=== PATIENT | male | born 1935 | race American Indian/Alaskan Native ===

== ENCOUNTER 2019-05-25 10:15 | Outpatient (CLI) | payer MEDICARE ==
[2019-05-25 10:45] LABS: Hematocrit 47.6 % (35.5-45.6); Hemoglobin 16.3 gm/dl (11.8-15.2); Mean Corpuscular HGB Conc 34 % (32-34); Mean Corpuscular Volume 88 fl (84-94); Platelet Count 199 K/mm3 (140-440); Red Blood Count 5.44 M/mm3 (3.65-5.03); Red Cell Distribution Width 14.2 % (13.2-15.2)
[2019-05-25 10:57] LABS: INR 1.17 (0.87-1.13)
[2019-05-25 10:58] LABS: Partial Thromboplastin Time 31.3 Sec. (24.2-36.6)
[2019-05-25 11:32] LABS: Alanine Aminotransferase 14 units/L (7-56); Albumin 4.6 g/dL (3.9-5); BUN/Creatinine Ratio 15; Blood Urea Nitrogen 18 mg/dL (9-20); Calcium 9.6 mg/dL (8.4-10.2); Chol/HDL Ratio 3.46 %; HDL Cholesterol 45 mg/dL (40-59); Hemolysis Index 6; LDL Cholesterol,Direct 92 mg/dL (50-130)
[2019-05-28 14:34] LABS: Protein S, Free 80 % normal (57-171); Protein S, Total 99 % normal (70-140)
== END 2019-05-25 10:16 | disposition home or self-care (01) ==
LOC: LAB 10:15
PROVIDERS: ATTEND Internal Medicine
DX: I10 Essential (primary) hypertension (principal); K21.9 Gastro-esophageal reflux disease without esophagitis; J44.9 Chronic obstructive pulmonary disease, unspecified; F03.90 Unspecified dementia, unspecified severity, without behavioral disturbance, psychotic disturbance, mood disturbance, and anxiety; G40.909 Epilepsy, unspecified, not intractable, without status epilepticus; Z86.73 Personal history of transient ischemic attack (TIA), and cerebral infarction without residual deficits; Z90.49 Acquired absence of other specified parts of digestive tract; Z86.711 Personal history of pulmonary embolism; Z79.899 Other long term (current) drug therapy; Z86.718 Personal history of other venous thrombosis and embolism; Z79.01 Long term (current) use of anticoagulants
CPT/HCPCS: 36415; 80053; 80061; 84436; 84443; 85027; 85305; 85610; 85730

== ENCOUNTER 2019-07-26 11:33 | Outpatient (CLI) | payer MEDICARE ==
[2019-07-26 12:00] LABS: Hematocrit 50.3 % (35.5-45.6); Hemoglobin 16.7 gm/dl (11.8-15.2); Mean Corpuscular HGB Conc 33 % (32-34); Mean Corpuscular Volume 89 fl (84-94); Platelet Count 252 K/mm3 (140-440); Red Blood Count 5.63 M/mm3 (3.65-5.03); Red Cell Distribution Width 14.2 % (13.2-15.2)
[2019-07-26 12:28] LABS: Alanine Aminotransferase 10 units/L (7-56); Albumin 4.7 g/dL (3.9-5); BUN/Creatinine Ratio 10; Blood Urea Nitrogen 12 mg/dL (9-20); Calcium 9.1 mg/dL (8.4-10.2); Hemolysis Index 13
--- NOTE | 2019-07-26 12:57 | XRay Report ---
CHEST 2 VIEWS INDICATION: COPD. COMPARISON: None. FINDINGS: Support devices: None. Heart: Within normal limits. Pulmonary vasculature: Normal. Lungs/pleura: No acute air space or interstitial disease. The lungs are mildly hyperexpanded and hype rlucent. No pleural effusion. No pneumothorax. Additional findings: Spondylosis of the thoracic spine diffuse osteopenia.. IMPRESSION: 1. No acute findings. 2. COPD. Signer Name: Aneesh Tomas MD Signed: 07/26/2019 12:53 PM Workstation Name: [id number]
== END 2019-07-26 11:34 | disposition home or self-care (01) ==
LOC: XRAY 11:33
PROVIDERS: ATTEND Internal Medicine
DX: J44.9 Chronic obstructive pulmonary disease, unspecified (principal); I26.99 Other pulmonary embolism without acute cor pulmonale; I10 Essential (primary) hypertension; E78.5 Hyperlipidemia, unspecified; Z87.891 Personal history of nicotine dependence; Z90.49 Acquired absence of other specified parts of digestive tract
CPT/HCPCS: 36415; 36600; 71046; 80053; 82803; 85027

== ENCOUNTER 2020-02-20 15:38 | Emergency (ER) | payer MEDICARE ==
[2020-02-20] MEDS ORDERED: LORazepam 2 MG/ML VIAL IM PRN (16:27)
--- NOTE | 2020-02-20 16:28 | Emergency Department Report ---
ED General Adult HPI - General Chief complaint: Medical Clearance Stated complaint: COMBATIVE PUI?: No Time Seen by Provider: 02/20/20 16:20 Source: patient, EMS ( EMS documentation not available at time of chart dictatio n ), RN notes reviewed, old records reviewed Mode of arrival: Stretcher Limitations: Physical Limitation, Other (Patient is demented and a poor histor adria) - History of Present Illness Initial comments: Primary care doctor: Dr. Bee, Dr. Maxwell, Dr. Miller Past medical history: Dementia, hypertension, high cholesterol, pulmonary embolism Patient is an 84-year-old gentleman. He is sent to the emergency room for evaluation of reported aggressive behavior. The patient is not currently accompanied by friends or family at this time for additional information or collateral information. In the emergency room, the patient denies physical pain. He denies other complaints. The patient states that he would like to eat, and asks for a blanket because "that fan out there is blowing cold air on me." -: This afternoon Severity scale (0 -10): 0 Improves with: none Worsens with: none Associated Symptoms: denies other symptoms - Related Data Previous Rx's Medication Instructions Recorded Last Taken Type Losartan [Cozaar] 25 mg PO QDAY #30 tablet 01/21/16 Unknown Rx Potassium Chloride [K-Dur] 20 meq PO QDAY #30 tablet 01/21/16 Unknown Rx Rivaroxaban [Xarelto] 15 mg PO BIDDIAB #14 day 01/21/16 Unknown Rx Simvastatin [Zocor TAB] 20 mg PO HS #30 tablet 01/21/16 Unknown Rx Trifluridine 1% (Nf) [Viroptic 1 drops OP Q2HR #1 bottle 01/21/16 Unknown Rx (Nf)] amLODIPine 5 mg PO DAILY #30 tablet 01/21/16 Unknown Rx donepeziL [Aricept] 10 mg PO HS #30 tablet 01/21/16 Unknown Rx levETIRAcetam [Keppra TAB] 1,000 mg PO BID #60 tablet 01/21/16 Unknown Rx Nitrofurantoin Rice/M-Cryst 100 mg PO Q12HR #13 capsule 02/20/20 Unknown Rx [Macrobid CAP] Allergies Allergy/AdvReac Type Severity Reaction Status Date / Time No Known Allergies Allergy Verified 05/03/14 01:02 ED Review of Systems ROS: Stated complaint: COMBATIVE Other details as noted in HPI Comment: Patient is demented and a poor historian Constitutional: denies: fever Respiratory: denies: cough Cardiovascular: denies: chest pain Gastrointestinal: denies: abdominal pain Genitourinary: as per HPI Musculoskeletal: denies: back pain Psychiatric: denies: homicidal thoughts, suicidal thoughts ED Past Medical Hx - Past Medical History Hx Hypertension: Yes 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 hernia repair - Social History Smoking Status: Never Smoker Substance Use Type: None - Medications Home Medications: Home Medications Medication Instructions Recorded Confirmed Last Taken Type Losartan [Cozaar] 25 mg PO QDAY #30 tablet 01/21/16 Unknown Rx Potassium Chloride [K-Dur] 20 meq PO QDAY #30 tablet 01/21/16 Unknown Rx Rivaroxaban [Xarelto] 15 mg PO BIDDIAB #14 day 01/21/16 Unknown Rx Simvastatin [Zocor TAB] 20 mg PO HS #30 tablet 01/21/16 Unknown Rx Trifluridine 1% (Nf) [Viroptic 1 drops OP Q2HR #1 bottle 01/21/16 Unknown Rx (Nf)] amLODIPine 5 mg PO DAILY #30 tablet 01/21/16 Unknown Rx donepeziL [Aricept] 10 mg PO HS #30 tablet 01/21/16 Unknown Rx levETIRAcetam [Keppra TAB] 1,000 mg PO BID #60 tablet 01/21/16 Unknown Rx Nitrofurantoin Rice/M-Cryst 100 mg PO Q12HR #13 capsule 02/20/20 Unknown Rx [Macrobid CAP] ED Physical Exam - General Limitations: Physical Limitation, Other (Demented and a poor historian) General appearance: alert, in no apparent distress - Head Head exam: Present: atraumatic, normocephalic - Eye Eye exam: Present: normal appearance - ENT ENT exam: Present: normal exam, mucous membranes moist, normal external ear exam - Neck Neck exam: Present: normal inspection, full ROM. Absent: tenderness, meningismus - Respiratory Respiratory exam: Present: normal lung sounds bilaterally. Absent: respiratory distress - Cardiovascular Cardiovascular Exam: Present: normal rhythm, bradycardia, normal heart sounds. Absent: tachycardia, irregular rhythm, systolic murmur, diastolic murmur, rubs, gallop - GI/Abdominal GI/Abdominal exam: Present: soft. Absent: distended, tenderness, guarding, rebound, rigid, pulsatile mass - Rectal Rectal exam: Present: deferred - Extremities Exam Extremities exam: Present: normal inspection, full ROM, other (2+ pulses noted i n the bilateral upper and lower extremities. There is no palpable cord. negative Homans sign. Muscular compartments are soft. The pelvis is stable.). Absent: pedal edema, calf tenderness - Back Exam Back exam: Present: normal inspection, full ROM. Absent: tenderness, CVA tenderness (R), CVA tenderness (L), paraspinal tenderness, vertebral tenderness - Neurological Exam Neurological exam: Present: alert (Patient is alert to name. The patient follows commands. The patient is demented.), other (No facial droop. Tongue midline. Extraocular movements intact bilaterally. Facial sensation intact to light touch in V1, V2, V3 distribution bilaterally. 5 and a 5 strength in 4 extremities. Sensation intact to light touch in 4 extremities.) - Psychiatric Psychiatric exam: Present: agitated - Skin Skin exam: Present: warm, dry, intact, normal color. Absent: rash ED Course Vital Signs 02/20/20 02/20/20 02/20/20 15:51 16:00 16:05 Temperature 97.6 F Pulse Rate 93 H 66 62 Respiratory 18 Rate Blood Pressure 113/59 113/59 O2 Sat by Pulse 100 99 Oximetry 02/20/20 02/20/20 02/20/20 16:16 16:30 16:45 Temperature Pulse Rate 63 66 Respiratory 15 Rate Blood Pressure 101/57 101/57 116/80 O2 Sat by Pulse 100 98 100 Oximetry 02/20/20 02/20/20 02/20/20 17:00 17:15 17:30 Temperature Pulse Rate 59 L 60 67 Respiratory 24 18 Rate Blood Pressure 116/80 121/68 113/71 O2 Sat by Pulse 100 100 Oximetry 02/20/20 02/20/20 02/20/20 17:45 18:00 18:16 Temperature Pulse Rate 68 66 72 Respiratory 18 12 11 L Rate Blood Pressure 118/67 117/46 130/89 O2 Sat by Pulse 100 100 89 Oximetry 02/20/20 02/20/20 18:30 18:45 Temperature Pulse Rate 61 65 Respiratory 11 L 16 Rate Blood Pressure 135/63 147/80 O2 Sat by Pulse 98 97 Oximetry - Reevaluation(s) Reevaluation #1: 02/20/20 17:10 Differential diagnosis, including but not limited to: Dementia, bacteriuria, thyroid derangement, electrolyte derangement, intracranial lesion, behavioral disturbance Assessment and plan: 84-year-old gentleman with a history of dementia, with a nonfocal motor exam, who denies medical complaints, with a benign and unremarkable physical examination, reassuring vital signs, sent to the emergency room with a nursing endorsed complaints of aggressive behavior. The patient is not violent or combative in the emergency room. Most likely, the history of aggressive behavior is likely secondary to patient's underlying dementia. Ho wever, we will work the patient up for additional pathology, and obtain CT scan of the brain, urinalysis, EKG, and appropriate screening laboratory studies. At the moment, he does not meet 1013 criteria in my opinion. Reevaluation #2: 02/20/20 19:23 Patient is observed for hours without clinical decompensation. His laboratory studies are unremarkable. Urinalysis suggest possible urinary tract infection. Macrobid is ordered. He does not appear to have an emergent medical condition at this time. He is medically suitable for discharge at this point time. It is unclear how mental health/psychiatry was consulted regarding this patient, as I personally did not request this consultation. Nevertheless, the psychiatry team has evaluated the patient, and he has been accepted to the fifth floor geriatric psychiatric unit. I will discharge the patient from the emergency room, and if the patient or family elects to have the patient to go to the fifth floor geriat [facility] psych unit that is their prerogative. In any event, there does not appear to be an emergent medical condition that would preclude discharge to his detention, or to the aforementioned geriatric psychiatric unit. ED Medical Decision Making - Lab Data Result diagrams: 02/20/20 16:33 02/20/20 16:33 Vital Signs 02/20/20 16:05 Temperature 97.6 F Pulse Rate 62 Respiratory 18 Rate Blood Pressure 113/59 O2 Sat by Pulse 99 Oximetry Vital Signs 02/20/20 16:05 Temperature 97.6 F Pulse Rate 62 Respiratory 18 Rate Blood Pressure 113/59 O2 Sat by Pulse 99 Oximetry Lab Results 02/20/20 02/20/20 02/20/20 Range/Units 16:33 16:33 16:33 WBC 5.6 (4.5-11.0) K/mm3 RBC 4.86 (3.65-5.03) M/mm3 Hgb 14.3 (11.8-15.2) gm/dl Hct 42.7 (35.5-45.6) % MCV 88 (84-94) fl MCH 29 (28-32) pg MCHC 34 (32-34) % RDW 14.9 (13.2-15.2) % Plt Count 223 (140-440) K/mm3 PT 14.6 (12.2-14.9) Sec. INR 1.16 H (0.87-1.13) Sodium 140 (137-145) mmol/L Potassium 4.2 (3.6-5.0) mmol/L Chloride 103.5 (98-107) mmol/L Carbon Dioxide 25 (22-30) mmol/L Anion Gap 16 mmol/L BUN 18 (9-20) mg/dL Creatinine 1.0 (0.8-1.5) mg/dL Estimated GFR > 60 ml/min BUN/Creatinine Ratio 18 % Glucose 127 H (75-100) mg/dL Calcium 8.8 (8.4-10.2) mg/dL Magnesium 2.30 (1.7-2.3) mg/dL TSH (0.270-4.200) mlU/mL Salicylates (2.8-20.0) mg/dL Acetaminophen (10.0-30.0) ug/mL 02/20/20 02/20/20 02/20/20 Range/Units 16:33 16:33 16:33 WBC (4.5-11.0) K/mm3 RBC (3.65-5.03) M/mm3 Hgb (11.8-15.2) gm/dl Hct (35.5-45.6) % MCV (84-94) fl MCH (28-32) pg MCHC (32-34) % RDW (13.2-15.2) % Plt Count (140-440) K/mm3 PT (12.2-14.9) Sec. INR (0.87-1.13) Sodium (137-145) mmol/L Potassium (3.6-5.0) mmol/L Chloride (98-107) mmol/L Carbon Dioxide (22-30) mmol/L Anion Gap mmol/L BUN (9-20) mg/dL Creatinine (0.8-1.5) mg/dL Estimated GFR ml/min BUN/Creatinine Ratio % Glucose (75-100) mg/dL Calcium (8.4-10.2) mg/dL Magnesium (1.7-2.3) mg/dL TSH 1.170 (0.270-4.200) mlU/mL Salicylates < 0.3 L (2.8-20.0) mg/dL Acetaminophen < 5.0 L (10.0-30.0) ug/mL - EKG Data -: EKG Interpreted by Me - EKG Data 02/20/20 17:12 Sinus rhythm, bradycardia, 58 bpm, there is a normal axis, there is a borderline first-degree AV block, defect, and low voltage EKG is not a STEMI. EKG appears to be grossly unchanged from prior EKG from December 2015 - Radiology Data Radiology results: report reviewed, image reviewed interpreted by me: Noncontrast CT scan of the brain reviewed by myself, shows chronic findings, no acute disease Print Report Referring Physician: JORGE SETHI Patient Name: ANJANA BRINK Date of : 1935 Sex: Male Report Date: 2020-02-20 Report Status: Finalized Findings [facility] [address] [place] [address] Cat Scan Report Signed Patient: ANJANA BRINK MR#: [id number] : 1935 Acct:[id number] Age/Sex: 84 / M ADM Date: 02/20/20 Loc: ED Attending Dr: Ordering Physician: JORGE SETHI MD Date of Service: 02/20/20 Procedure(s): CT head/brain wo con Accession Number(s): [id number] cc: JORGE SETHI MD CT HEAD WITHOUT CONTRAST INDICATION / CLINICAL INFORMATION: Change in behavior. TECHNIQUE: All CT scans at this location are performed using CT dose reduction for ALARA by means of automated exposure control. COMPARISON: Head CT 01/14/2016 FINDINGS: HEMORRHAGE: No evidence of intracranial hemorrhage or extra-axial fluid collection. EXTRA-AXIAL SPACES: Cortical sulci and sylvian fissures are enlarged reflecting a degree of parenchymal volume loss which is pronounced even given the patient's stated age of 84 years. . Dilatation of the subarachnoid space over the convexity of both cerebral hemispheres is a manifestation of atrophy in this patient. Basilar cisterns have an unremarkable appearance. VENTRICULAR SYSTEM: The third and lateral ventricles are enlarged reflecting presence of prominent parenchymal volume loss. CEREBRAL PARENCHYMA: Periventricular and deep white matter lucency is observed. This is probably secondary to advanced microvascular ischemic change. There is no indication of recent infarction. Areas of encephalomalacia are observed in a distribution compatible with bilateral posterior cerebral artery infarctions involving both occipital lobes. Similar findings were present on previous study. There is evidence of a remote small deep infarction in the anterior limb of the internal capsule on the left. This has occurred since prior study. MIDLINE SHIFT OR HERNIATION: There is no mass effect. CEREBELLUM / BRAINSTEM: Age-related cerebellar atrophy is noted. Brainstem and cerebellum have an otherwise unremark able appearance. INTRACRANIAL VESSELS:Calcified atherosclerotic plaque is present along the course of the cavernous segments of both internal carotid arteries. ORBITS: Patient is status post bilateral cataract surgery. Orbits have an otherwise unremarkable appearance. SOFT TISSUES of HEAD: No significant abnormality. CALVARIUM: Evaluation of bone windows reveals no abnormalities. PARANASAL SINUSES / MASTOID AIR CELLS: Paranasal sinuses are free from inflammatory mucosal disease. Mastoid air cells are normally pneumatized. IMPRESSION: 1. 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 2. Small deep infarction anterior limb internal capsule on the left. This has occurred since previous study. This likely late subacute or chronic in duration. 3. Prominent atrophy and microvascular ischemic change even allowing for the patient's age of 84 years. 4. No acute intracranial abnormalities are identified. Signer Name: Derick Mak MD Signed: 02/20/2020 5:32 PM Workstation Name: [id number] Transcribed By: Dictated By: Derick Mak MD Electronically Authenticated By: Derick Mak MD Signed Date/Time: 02/20/20 173 DD/ 25 TD/TT: Critical care attestation.: If time is entered above; I have spent that time in minutes in the direct care of this critically ill patient, excluding procedure time. ED Disposition Clinical Impression: Dementia, History of behavior problem, Bacteriuria Disposition: [id number]/TX-70 ANOTHER TYPE HLTHCARE Is pt being admited?: No Does the pt Need Aspirin: No Condition: Stable Additional Instructions: Cultures were sent today, and results will be available in the next 3 to 5 days. Please have a primary care doctor contact the medical records department to obtain culture results. Take the antibiotics as directed. Follow-up with a general medical doctor within the next 5 to 7 days. At this point in time, patient does not appear to have an immediate medical contraindication to discharge from the emergency room; an emergent medical condition was not identified during his stay in the emergency room. The patient does not meet criteria for hospitalization from a medical perspective at this time. Please return to the emergency room right away with new pain, worsening pain, migration of pain, projectile vomiting, change in mental status, confusion, inability to tolerate liquid feeds, new, worsened or different symptoms not present on the initial emergency room evaluation. Referrals: MITESH SORENSEN MD [Staff Physician] - 3-5 Days
[2020-02-20 17:10] LABS: Hematocrit 42.7 % (35.5-45.6); Hemoglobin 14.3 gm/dl (11.8-15.2); Mean Corpuscular HGB Conc 34 % (32-34); Mean Corpuscular Volume 88 fl (84-94); Platelet Count 223 K/mm3 (140-440); Red Blood Count 4.86 M/mm3 (3.65-5.03); Red Cell Distribution Width 14.9 % (13.2-15.2)
[2020-02-20 17:24] LABS: INR 1.16 (0.87-1.13)
[2020-02-20 17:31] LABS: BUN/Creatinine Ratio 18; Blood Urea Nitrogen 18 mg/dL (9-20); Calcium 8.8 mg/dL (8.4-10.2); Hemolysis Index 42
--- NOTE | 2020-02-20 17:36 | Cat Scan Report ---
CT HEAD WITHOUT CONTRAST INDICATION / CLINICAL INFORMATION: Change in behavior. TECHNIQUE: All CT scans at this location are performed using CT dose reduction for ALARA by means of automated e xposure control. COMPARISON: Head CT 01/14/2016 FINDINGS: HEMORRHAGE: No evidence of intracranial hemorrhage or extra-axial fluid collection. EXTRA-AXIAL SPACES: Cortical sulci and sylvian fissures are enlarged reflecting a degree of parenchym al volume loss which is pronounced even given the patient's stated age of 84 years. . Dilatation of the subarachnoid space over the convexity of both cerebral hemispheres is a manifestation of atrophy in this patient. Basilar cisterns have an unremarkable appearance. VENTRICULAR SYSTEM: The third and lateral ventricles are enlarged reflecting presence of prominent pa renchymal volume loss. CEREBRAL PARENCHYMA: Periventricular and deep white matter lucency is observed. This is probably seco ndary to advanced microvascular ischemic change. There is no indication of recent infarction. Areas o f encephalomalacia are observed in a distribution compatible with bilateral posterior cerebral artery infarctions involving both occipital lobes. Similar findings were present on previous study. There i s evidence of a remote small deep infarction in the anterior limb of the internal capsule on the left . This has occurred since prior study. MIDLINE SHIFT OR HERNIATION: There is no mass effect. CEREBELLUM / BRAINSTEM: Age-related cerebellar atrophy is noted. Brainstem and cerebellum have an oth erwise unremarkable appearance. INTRACRANIAL VESSELS:Calcified atherosclerotic plaque is present along the course of the cavernous se gments of both internal carotid arteries. ORBITS: Patient is status post bilateral cataract surgery. Orbits have an otherwise unremarkable appe arance. SOFT TISSUES of HEAD: No significant abnormality. CALVARIUM: Evaluation of bone windows reveals no abnormalities. PARANASAL SINUSES / MASTOID AIR CELLS: Paranasal sinuses are free from inflammatory mucosal disease. Mastoid air cells are normally pneumatized. IMPRESSION: 1. 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 2. Small deep infarction anterior limb internal capsule on the left. This has occurred since previous study. This likely late subacute or chronic in duration. 3. Prominent atrophy and microvascular ischemic change even allowing for the patient's age of 84 year s. 4. No acute intracranial abnormalities are identified. Signer Name: Derick Mak MD Signed: 02/20/2020 5:32 PM Workstation Name: [id number]
[2020-02-20 18:55] VITALS: BP 147/80
[2020-02-20 19:16] LABS: Bacteria,Urine 1+ /HPF (Negative); Bilirubin,Urine NEG (Negative); Blood,Urine NEG (Negative); Color,Urine Yellow (Yellow); Protein,Urine <15 mg/dL mg/dL (Negative); Urobilinogen,Urine < 2.0 mg/dL (<2.0)
[2020-02-20] MEDS ORDERED: NITROFURANTOIN MONOHYD/M-CRYST 100 MG CAP PO ONE (19:22)
== END 2020-02-20 20:37 | disposition other institution (70) ==
LOC: ED 15:38
DX: F03.91 Unspecified dementia, unspecified severity, with behavioral disturbance (principal); R82.71 Bacteriuria; I10 Essential (primary) hypertension; E11.9 Type 2 diabetes mellitus without complications; R56.9 Unspecified convulsions; Z86.73 Personal history of transient ischemic attack (TIA), and cerebral infarction without residual deficits; Z90.49 Acquired absence of other specified parts of digestive tract; Z98.890 Other specified postprocedural states; Z79.899 Other long term (current) drug therapy
CPT/HCPCS: 36415; 70450; 80048; 81001; 82550; 83735; 84443; 85027; 85610; 87086; 87186; 93005; 96372; 99285; J2060; 80320; 87076; G0480

== ENCOUNTER 2020-05-28 18:45 | Observation (INO) | payer MEDICARE ==
[2020-05-28] MEDS ORDERED: levETIRAcetam 1000 MG/NS 0.75% 1,000 MG/100 ML BAG IV ONE (19:14)
--- NOTE | 2020-05-28 19:34 | Emergency Department Report ---
ED General Adult HPI - General Chief complaint: Weakness Stated complaint: HYPOTENSION Time Seen by Provider: 05/28/20 19:14 Source: EMS, RN notes reviewed Mode of arrival: Stretcher Limitations: Other - History of Present Illness Initial comments: Patient presents to the emergency department via EMS for hypotension. Per EMS they arrived to the hospital to pick the patient up with been discharged from the floor and the nurse gave the patient upon discharge 2 mg of Ativan IV while they were placing him on the stretcher. In route they contacted the [facility] to give report and at that time they noticed the patient's blood pressure was 60/30 with a heart rate of 34 bpm with O2 sats on room air 80%. At that point they decided to bring the patient back to the emergency department and upon his arrival to the ED his blood pressure was 150/75. Patient is arousable to stimuli verbal and physical but is under the influence of Ativan. -: Sudden Severity scale (0 -10): 0 Improves with: none Worsens with: none Associated Symptoms: denies other symptoms Treatments Prior to Arrival: none - Related Data Previous Rx's Medication Instructions Recorded Last Taken Type Simvastatin [Zocor TAB] 20 mg PO HS #30 tablet 01/21/16 02/10/20 Rx Trifluridine 1% (Nf) [Viroptic 1 drops OP Q2HR #1 bottle 01/21/16 02/10/20 Rx (Nf)] Losartan [Cozaar] 25 mg PO QDAY #30 tablet 03/06/20 Unknown Rx Melatonin [Melatonin 5MG TAB] 5 mg PO QHS #30 tablet 03/06/20 Unknown Rx Potassium Chloride [K-Dur] 20 meq PO QDAY #30 tablet 03/06/20 Unknown Rx Rivaroxaban [Xarelto] 15 mg PO BIDDIAB #14 day 03/06/20 Unknown Rx amLODIPine 5 mg PO DAILY #30 tablet 03/06/20 Unknown Rx clonazePAM [KlonoPIN] 0.25 mg PO BID #60 tablet 03/06/20 Unknown Rx donepeziL [Aricept] 10 mg PO HS #30 tablet 03/06/20 Unknown Rx levETIRAcetam [Keppra TAB] 1,000 mg PO BID #60 tablet 03/06/20 Unknown Rx risperiDONE [RisperDAL] 1 mg PO BID #60 tablet 03/06/20 Unknown Rx traZODone [Desyrel] 50 mg PO QHS #30 tablet 03/06/20 Unknown Rx Acetaminophen [Acetaminophen 650 mg [place] Q4H PRN supp.rect 05/02/20 Unknown Rx SUPPOS] Lispro Insulin [HumaLOG] 0 unit SUB-Q Q6HR units 05/02/20 Unknown Rx Losartan [Cozaar] 50 mg PO QDAY tablet 05/02/20 Unknown Rx Pravastatin [Pravachol] 40 mg PO QHS tablet 05/02/20 Unknown Rx Rivaroxaban [Xarelto] 20 mg PO QDDIAB tablet 05/02/20 Unknown Rx amLODIPine 5 mg PO QDAY tablet 05/02/20 Unknown Rx dexAMETHasone [Decadron] 6 mg PO Q24HR #7 tablet 05/02/20 Unknown Rx Allergies Allergy/AdvReac Type Severity Reaction Status Date / Time No Known Allergies Allergy Verified 01/27/14 01:02 ED Review of Systems ROS: Stated complaint: HYPOTENSION Other details as noted in HPI ED Past Medical Hx - Past Medical History Hx Hypertension: Yes 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 hernia repair - Social History Smoking Status: Unknown if ever smoked - Medications Home Medications: Home Medications Medication Instructions Recorded Confirmed Last Taken Type Simvastatin [Zocor TAB] 20 mg PO HS #30 tablet 01/21/16 05/24/20 02/10/20 Rx Trifluridine 1% (Nf) [Viroptic 1 drops OP Q2HR #1 bottle 01/21/16 05/24/20 0 02/10/20 Rx (Nf)] Losartan [Cozaar] 25 mg PO QDAY #30 tablet 03/06/20 05/24/20 Unknown Rx Melatonin [Melatonin 5MG TAB] 5 mg PO QHS #30 tablet 03/06/20 05/24/20 Unknown Rx Potassium Chloride [K-Dur] 20 meq PO QDAY #30 tablet 03/06/20 05/24/20 Unknown Rx Rivaroxaban [Xarelto] 15 mg PO BIDDIAB #14 day 03/06/20 05/24/20 Unknown Rx amLODIPine 5 mg PO DAILY #30 tablet 03/06/20 05/24/20 Unknown Rx clonazePAM [KlonoPIN] 0.25 mg PO BID #60 tablet 03/06/20 05/24/20 Unknown Rx donepeziL [Aricept] 10 mg PO HS #30 tablet 03/06/20 05/24/20 Unknown Rx levETIRAcetam [Keppra TAB] 1,000 mg PO BID #60 tablet 03/06/20 05/24/20 Unknown Rx risperiDONE [RisperDAL] 1 mg PO BID #60 tablet 03/06/20 05/24/20 Unknown Rx traZODone [Desyrel] 50 mg PO QHS #30 tablet 03/06/20 05/24/20 Unknown Rx Acetaminophen [Acetaminophen 650 mg [place] Q4H PRN supp.rect 05/02/20 05/24/20 Unknown Rx SUPPOS] Lispro Insulin [HumaLOG] 0 unit SUB-Q Q6HR units 05/02/20 05/24/20 Unknown Rx Losartan [Cozaar] 50 mg PO QDAY tablet 05/02/20 05/24/20 Unknown Rx Pravastatin [Pravachol] 40 mg PO QHS tablet 05/02/20 05/24/20 Unknown Rx Rivaroxaban [Xarelto] 20 mg PO QDDIAB tablet 05/02/20 05/24/20 Unknown Rx amLODIPine 5 mg PO QDAY tablet 05/02/20 05/24/20 Unknown Rx dexAMETHasone [Decadron] 6 mg PO Q24HR #7 tablet 05/02/20 05/24/20 Unknown Rx ED Physical Exam - General Limitations: No Limitations, Other General appearance: obtunded (but easily arousable) - Head Head exam: Present: atraumatic, normocephalic - Eye Eye exam: Present: normal appearance, PERRL - ENT ENT exam: Present: mucous membranes moist - Neck Neck exam: Present: normal inspection - Respiratory Respiratory exam: Present: normal lung sounds bilaterally. Absent: respiratory distress - Cardiovascular Cardiovascular Exam: Present: regular rate, normal rhythm - GI/Abdominal GI/Abdominal exam: Present: soft, normal bowel sounds. Absent: distended, tenderness - Extremities Exam Extremities exam: Present: other (Contracture of left upper extremity) - Neurological Exam Neurological exam: Present: other (Not able to completely assess due to the patient being under the influence Ativan) - Psychiatric Psychiatric exam: Present: other (Not able to completely assess due to the patient being under the influence Ativan) ED Medical Decision Making - Medical Decision Making Patient given IV Keppra Critical care attestation.: If time is entered above; I have spent that time in minutes in the direct care of this critically ill patient, excluding procedure time. ED Disposition Clinical Impression: Seizure Disposition: [id number] OP ADMIT IP TO THIS HOSP Is pt being admited?: Yes Does the pt Need Aspirin: No Condition: Fair
[2020-05-28] MEDS ORDERED: ACETAMINOPHEN 325 MG TAB PO PRN (19:36)
[2020-05-28] MEDS ORDERED: ONDANSETRON 4 MG/2 ML INJ IV PRN (19:36)
--- NOTE | 2020-05-28 19:36 | History and Physical Report ---
History of Present Illness Chief complaint: Confused History of present illness: 85 YO Male Long-Term Facility Resident at [facility] Nursing [facility] with CVA with LHP, Vascular Demenitia, COVID 19 Infection S/P Treatment currently asymptomatic, Cerebral Atherosclerosis, Seizure Disorder, HLD, HTN, DM who is DNR presents to ED for evaluation. Patient is confused and unable to provide history. Patient history taken from EMS staff as well as ED staff. As per staff the patient was found to be hypotensive in [facility] being discharged from the hospital. Patient seen and evaluated in the emergency department. Lab and imaging studies reviewed. Patient found to have hypotension with systolic blood pressure in the 60s and the patient was subsequently admitted to medical floor due to increased risk of decompensation. Patient placed in observation status and treated with IV fluid resuscitation therapy. Advanced care planning conducted in ED. prior admission on 05/25/2020 reviewed. All medication listed at time of admission has been reconciled. Past History Past Medical History: diabetes, hypertension, hyperlipidemia, seizures, other (See HPI) Past Surgical History: cataract removal, hernia repair, Other (Back surgery) Social history: single Family history: hypertension Medications and Allergies Allergies Allergy/AdvReac Type Severity Reaction Status Date / Time No Known Allergies Allergy Verified 01/27/14 01:02 Home Medications Medication Instructions Recorded Confirmed Last Taken Type Simvastatin [Zocor TAB] 20 mg PO HS #30 tablet 01/21/16 05/24/20 02/10/20 Rx Trifluridine 1% (Nf) [Viroptic 1 drops OP Q2HR #1 bottle 01/21/16 05/24/20 02/10/20 Rx (Nf)] Losartan [Cozaar] 25 mg PO QDAY #30 tablet 03/06/20 05/24/20 Unknown Rx Melatonin [Melatonin 5MG TAB] 5 mg PO QHS #30 tablet 03/06/20 05/24/20 Unknown Rx Potassium Chloride [K-Dur] 20 meq PO QDAY #30 tablet 03/06/20 05/24/20 Unknown Rx Rivaroxaban [Xarelto] 15 mg PO BIDDIAB #14 day 03/06/20 05/24/20 Unknown Rx amLODIPine 5 mg PO DAILY #30 tablet 03/06/20 05/24/20 Unknown Rx clonazePAM [KlonoPIN] 0.25 mg PO BID #60 tablet 03/06/20 05/24/20 Unknown Rx donepeziL [Aricept] 10 mg PO HS #30 tablet 03/06/20 05/24/20 Unknown Rx levETIRAcetam [Keppra TAB] 1,000 mg PO BID #60 tablet 03/06/20 05/24/20 Unknown Rx risperiDONE [RisperDAL] 1 mg PO BID #60 tablet 03/06/20 05/24/20 Unknown Rx traZODone [Desyrel] 50 mg PO QHS #30 tablet 03/06/20 05/24/20 Unknown Rx Acetaminophen [Acetaminophen 650 mg [place] Q4H PRN supp.rect 05/02/20 05/24/20 Unknown Rx SUPPOS] Lispro Insulin [HumaLOG] 0 unit SUB-Q Q6HR units 05/02/20 05/24/20 Unknown Rx Losartan [Cozaar] 50 mg PO QDAY tablet 05/02/20 05/24/20 Unknown Rx Pravastatin [Pravachol] 40 mg PO QHS tablet 05/02/20 05/24/20 Unknown Rx Rivaroxaban [Xarelto] 20 mg PO QDDIAB tablet 05/02/20 05/24/20 Unknown Rx amLODIPine 5 mg PO QDAY tablet 05/02/20 05/24/20 Unknown Rx dexAMETHasone [Decadron] 6 mg PO Q24HR #7 tablet 05/02/20 05/24/20 Unknown Rx Review of Systems ROS unobtainable: due to mental status Exam - Constitutional General appearance: Present: mild distress - EENT Eyes: Present: PERRL ENT: clear oral mucosa, hearing decreased - Neck Neck: Present: supple, normal ROM - Respiratory Respiratory effort: normal Respiratory: bilateral: CTA - Cardiovascular Rhythm: other (Hypotensive) Heart Sounds: Present: S1 & S2. Absent: rub, click - Extremities Extremities: pulses symmetrical, No edema Peripheral Pulses: within normal limits - Abdominal General gastrointestinal: Present: soft, non-tender, non-distended, normal bowel sounds Male genitourinary: Present: normal - Integumentary Integumentary: Present: clear, warm, dry - Musculoskeletal Musculoskeletal: left sided weakness - Psychiatric Psychiatric: no appropriate mood/affect - Neurologic Neurologic: CNII-XII intact, focal deficits, no moves all extremities, no gait normal Assessment and Plan - Patient Problems (1) Hypotension Current Visit: Yes Status: Acute Plan to address problem: Suspected secondary to benzodiazepine administration. Patient placed in obse rvation status and treated with IV fluid resuscitation therapy, supportive care. Discharge planning in a.m. (2) Dementia with behavioral disturbance Current Visit: No Status: Acute Qualifiers: Dementia type: unspecified type Qualified Code(s): F03.91 - Unspecified dementia with behavioral disturbance Plan to address problem: Normal prompting, verbal redirection, supportive care. (3) HLD (hyperlipidemia) Current Visit: No Status: Chronic Qualifiers: Hyperlipidemia type: mixed hyperlipidemia Qualified Code(s): E78.2 - Mixed hyperlipidemia Plan to address problem: Statin therapy as clinically indicated. (4) HTN (hypertension) Current Visit: No Status: Chronic Qualifiers: Hypertension type: essential hypertension Plan to address problem: Monitor blood pressure every shift, continue medical management (5) Seizure disorder Current Visit: No Status: Chronic Plan to address problem: Continue Keppra therapy, supportive care. (6) DVT prophylaxis Current Visit: Yes Status: Acute Plan to address problem: SCD to bilateral lower extremities while in bed,
[2020-05-28] MEDS ORDERED: TRIFLURIDINE 1% OP SCH (20:00)
[2020-05-28] MEDS ORDERED: DONEPEZIL 10 MG TAB PO SCH (22:00)
[2020-05-28] MEDS ORDERED: NON-FORMULARY EACH (Levetiracetam [Keppra Tab] 1,000 MG) PO SCH (22:00)
[2020-05-28] MEDS ORDERED: traZODone 50 MG TAB PO SCH (22:00)
[2020-05-28] MEDS ORDERED: NON-FORMULARY EACH (Simvastatin 20 MG) PO SCH (22:00)
[2020-05-28] MEDS ORDERED: levETIRAcetam 500 MG TAB PO SCH (22:00)
[2020-05-28] MEDS ORDERED: MELATONIN 5 MG TAB PO SCH (22:00)
[2020-05-28] MEDS ORDERED: PRAVASTATIN 40 MG TAB PO SCH (22:00)
[2020-05-29] MEDS: clonazePAM 0.5 MG TAB PO SCH ×2 (00:01→16:56)
[2020-05-29] MEDS: risperiDONE 1 MG TAB PO SCH ×2 (00:02→16:56)
[2020-05-29] MEDS ORDERED: LORazepam 2 MG/ML VIAL IV ONE (01:01)
[2020-05-29] MEDS ORDERED: RIVAROXABAN 20 MG TAB PO SCH (08:00)
[2020-05-29] MEDS ORDERED: RIVAROXABAN 15 MG TAB PO SCH (08:00)
[2020-05-29] MEDS ORDERED: LORazepam 2 MG/ML VIAL IV PRN (08:37)
--- NOTE | 2020-05-29 08:39 | Event Note ---
Date: 05/29/20 Notified about patient having, sezure, no injury reported. start ativan, eeg and neurology consult placed
[2020-05-29] MEDS ORDERED: LOSARTAN 25 MG TAB PO SCH (10:00)
[2020-05-29] MEDS ORDERED: POTASSIUM CHLORIDE ER 20 MEQ TAB PO SCH (10:00)
[2020-05-29] MEDS ORDERED: amLODIPine 5 MG TAB PO SCH (10:00)
[2020-05-29] MEDS ORDERED: levETIRAcetam 1,500 MG in DEXTROSE 5% IN WATER 100 ML IV SCH ×2 (11:00→22:00)
[2020-05-29 13:27] LABS: Alanine Aminotransferase 26 units/L (7-56); Albumin 3.5 g/dL (3.9-5); BUN/Creatinine Ratio 26; Blood Urea Nitrogen 26 mg/dL (9-20); Calcium 8.9 mg/dL (8.4-10.2); Hemolysis Index 8
[2020-05-29 18:11] VITALS: BP 126/69
--- NOTE | 2020-05-30 10:49 | Discharge Summary ---
Providers - Providers Date of Admission: 05/28/20 19:36 Attending physician: LAURENT TIDWELL Primary care physician: INFORMATION SERVICES VICE PRESIDENT Hospitalization Condition: Poor Hospital course: 85 YO Male Alf Facility Resident at [facility] with CVA with LHP, Vascular Demenitia, COVID 19 Infection S/P Treatment currently asymptomatic, Cerebral Atherosclerosis, Seizure Disorder, HLD, HTN, DM who is DNR presents to ED for evaluation. Patient is confused and unable to provide history. Patient history taken from EMS staff as well as ED staff. Patient seen and evaluated in the emergency department due to hypotension while en route to SNF. Lab and imaging studies reviewed. Patient found to have chronic Debility. Pt admitted to medical floor and treated with supportive care. Pt asymptomatic for COVID related respiratory infection. Pt treated with IVF resuscitation. Pt overall status did not improve. Advanced care planning conducted in ED. Pt family informed of poor prognosis again today. Pt medically optimized on day of discharge. Pt discharged to SNF with plan to enroll in Hospice care. Pt seen and evaluated prior to discharge but no significant new findings. Pt remains chronically ill without clinical improvement. Patient discussed with metal bed assembler at SNF. 35 minutes dedicated to patient discharge. Disposition: [id number]/TX-[id number] SNF W [facility] CERT - Discharge Diagnoses (1) Hypotension Status: Acute (2) Dementia with behavioral disturbance Status: Acute Qualifiers: Dementia type: unspecified type Qualified Code(s): F03.91 - Unspecified dementia with behavioral disturbance (3) HLD (hyperlipidemia) Status: Chronic Qualifiers: Hyperlipidemia type: mixed hyperlipidemia Qualified Code(s): E78.2 - Mixed hyperlipidemia (4) HTN (hypertension) Status: Chronic Qualifiers: Hypertension type: essential hypertension (5) Seizure disorder Status: Chronic Comment: Stacie López. (6) DVT prophylaxis Status: Acute Core Measure Documentation - Palliative Care Palliative Care/ Comfort Measures: Palliative Care/Comfort Measures - Core Measures Any of the following diagnoses?: none Exam - Constitutional Vitals: Temp Pulse Resp BP Pulse Ox 96.6 F L 94 H 20 126/69 100 05/29/20 15:47 05/29/20 15:47 05/29/20 15:47 05/29/20 15:47 05/29/20 15:47 General appearance: Present: mild distress - EENT Eyes: Present: PERRL ENT: hearing decreased - Neck Neck: Present: supple, normal ROM - Respiratory Respiratory effort: labored - Cardiovascular Heart Sounds: Present: S1 & S2. Absent: rub, click - Extremities Extremities: pulses symmetrical, No edema - Abdominal General gastrointestinal: Present: soft, non-distended - Integumentary Integumentary: Present: dry, clammy - Musculoskeletal Musculoskeletal: generalized weakness - Psychiatric Psychiatric: no appropriate mood/affect, no intact judgment & insight, no memory intact - Neurologic Neurologic: focal deficits, no moves all extremities, no gait normal Plan Activity: up only with assistance Diet: advance as tolerated Follow up with: PRIMARY CARE, [Primary Care Provider] - 7 Days
== END 2020-05-29 18:30 ==
LOC: ED 18:45 → 3A 19:36
PROVIDERS: ADMIT Internal Medicine; ATTEND Internal Medicine
DX: I95.9 Hypotension, unspecified (principal); F01.50 Vascular dementia, unspecified severity, without behavioral disturbance, psychotic disturbance, mood disturbance, and anxiety; E78.2 Mixed hyperlipidemia; G40.909 Epilepsy, unspecified, not intractable, without status epilepticus; I10 Essential (primary) hypertension; I67.2 Cerebral atherosclerosis; E11.9 Type 2 diabetes mellitus without complications; Z20.828 Contact with and (suspected) exposure to other viral communicable diseases; Z86.73 Personal history of transient ischemic attack (TIA), and cerebral infarction without residual deficits; Z98.49 Cataract extraction status, unspecified eye; Z79.899 Other long term (current) drug therapy
CPT/HCPCS: 36415; 80053; 96365; 96375; 96376; 99284; A9270; G0378; J1953; J2060